=== PATIENT | male | born 1970 | race Two or more races ===

== ENCOUNTER → 2020-04-27 | Outpatient (CLI) | payer BC, MEDICAID ==
--- NOTE | 2020-04-27 16:41 | RAD ---
Ultrasound of the abdomen 04/27/2020 CLINICAL HISTORY: Abnormal liver function tests. TECHNIQUE: A real-time ultrasound examination of the right upper quadrant of the abdomen was performe d. Multiple images were obtained. FINDINGS: The gallbladder is well-distended. No gallstones are visualized. The gallbladder wall thick ness is within normal limits. The common bile duct measures 3 mm in diameter which is within normal l imits. The liver is normal in size measuring 13.6 cm in length. Increased echogenicity of the liver parenchy ma is seen consistent with mild fatty infiltration. No focal abnormality of the liver is seen. The sp leny is normal in size measuring 11.6 cm in length. Both kidneys are within normal limits in size and echogenicity. The pancreas is not well-visualized due to overlying bowel gas. The abdominal aorta tapers normally. The inferior vena cava is within normal limits. No free fluid is seen. IMPRESSION: Mild fatty infiltration of the liver. Otherwise negative study. Electronically signed by: Kody Hoover MD (04/27/2020 4:39 PM) [id number]
== END ==
LOC: US 10:14
PROVIDERS: ATTEND Family Medicine
DX: K76.0 Fatty (change of) liver, not elsewhere classified (principal)
CPT/HCPCS: 76700